=== PATIENT | female | born 1995 | race Caucasian/White ===

== ENCOUNTER 2017-02-03 16:12 | Emergency (ER) | payer BC ==
[2017-02-03 17:25] VITALS: BP 111/52
--- NOTE | 2017-02-03 18:36 | UC ---
Skin Complaint HPI - HPI Summary HPI Summary: pt presents with c/o sudden onset of pruritic rash that is diffuse. Pt states taht she was hiking over the weekend and then woke two days after hiking with diffuse pruritic circular rash. Pt takes daily xyzal, and denies tick bite. - History of Current Complaint Chief Complaint: UCGeneralIllness Time Seen by Provider: 02/03/17 17:42 Stated Complaint: SORE THROAT, RASH Hx Obtained From: Patient Hx Last Menstrual Period: 3 weeks ago ?: No Onset/Duration: Sudden Onset, Lasting Days - 2 Onset Severity: Mild Current Severity: Mild Pain Intensity: 0 Pain Scale Used: 0-10 Numeric Character: Pruritus, Redness Alleviating: Unknown Associated Signs & Symptoms: Positive: Rash - Allergy/Home Medications Allergies/Adverse Reactions: Allergies Allergy/AdvReac Type Severity Reaction Status Date / Time No Known Allergies Allergy Verified 02/03/17 17:26 Home Medications: Home Medications LevoCETirizine TAB (NF) [Xyzal TAB (NF)] 10 02/03/17 [History] Review of Systems Constitutional: Negative Skin: Rash Eyes: Negative ENT: Negative Respiratory: Negative Cardiovascular: Negative Gastrointestinal: Negative Genitourinary: Negative Motor: Negative Neurovascular: Negative Musculoskeletal: Negative Neurological: Negative Psychological: Negative All Other Systems Reviewed And Are Negative: Yes PMH/Surg Hx/FS Hx/Imm Hx Previously Healthy: Yes - Surgical History Surgical History: None Surgery Procedure, Year, and Place: Nasal surgery 12/2015 - Family History Known Family History: Positive: Respiratory Disease - Social History Occupation: Student Alcohol Use: Occasionally Substance Use Type: None Smoking Status (MU): Never Smoked Tobacco - Immunization History Most Recent Tetanus Shot: 2012 ? Vaccination Up to Date: Yes Physical Exam Triage Information Reviewed: Yes Appearance: Well-Appearing Vital Signs: Initial Vital Signs Temp 97.6 F 02/03/17 17:19 Pulse 84 02/03/17 17:19 Resp 20 02/03/17 17:19 BP 111/52 02/03/17 17:19 Pulse Ox 99 02/03/17 17:19 Vital Signs Reviewed: Yes Eye Exam: Normal ENT Exam: Other ENT: Positive: TM bulging - left TM Neck exam: Normal Respiratory Exam: Normal Cardiovascular Exam: Normal Musculoskeletal Exam: Normal Neurological Exam: Normal Psychological Exam: Normal Skin Exam: Other Skin: Positive: rashes - diffuse, erythematous circular rash Course/Dx - Differential Diagnoses - Skin Complaint Differential Diagnoses: Allergic Reaction, Contact Dermatitis, Tick Born Illness - Diagnoses Provider Diagnoses: contact dermatitis Discharge - Discharge Plan Condition: Stable Disposition: HOME Prescriptions: predniSONE TAB* [Deltasone TAB*] 20 mg PO DAILY #5 tab Patient Education Materials: Contact Dermatitis (ED) Referrals: Gladys Will MD [Primary Care Provider] - If Needed
== END 2017-02-03 18:25 | disposition home or self-care (01) ==
LOC: UCCORT 16:12
DX: L25.9 Unspecified contact dermatitis, unspecified cause (principal)
CPT/HCPCS: 99211; G0463

== ENCOUNTER 2017-04-01 18:02 | Emergency (ER) | payer BC ==
[2017-04-01 19:01] VITALS: BP 115/63
--- NOTE | 2017-04-01 19:47 | UC ---
Skin Complaint HPI - HPI Summary HPI Summary: 21 y/o female with c/o red, dry, burning feet x ~ several days. C/O peeling, cracking feet, burning type sensation. Patient has had similar symptoms while playing soccer, was treated with an ointment. Mother concerned about cellulitis. no fever, chills. Pt also c/o urinary frequency with one episodes of incontinence while sleeping. No burning, foul odor, not sexually active, no . no back pain. no prior symptoms. staying at [place] [facility] currently. - History of Current Complaint Chief Complaint: UCGeneralIllness Time Seen by Provider: 04/01/17 19:38 Stated Complaint: URINARY/LFT FOOT INFECTION Hx Obtained From: Patient, Family/Black Puller - mother Hx Last Menstrual Period: 3 wks ago Onset/Duration: Gradual Onset, Lasting Weeks Onset Severity: Mild Current Severity: Mild - Allergy/Home Medications Allergies/Adverse Reactions: Allergies Allergy/AdvReac Type Severity Reaction Status Date / Time No Known Allergies Allergy Verified 04/01/17 18:56 Review of Systems Skin: Rash Genitourinary: Frequency All Other Systems Reviewed And Are Negative: Yes PMH/Surg Hx/FS Hx/Imm Hx Previously Healthy: Yes - Surgical History Surgical History: None Surgery Procedure, Year, and Place: Sinus surgery 12/2015 - Family History Known Family History: Positive: Respiratory Disease - Social History Alcohol Use: None Substance Use Type: None Smoking Status (MU): Never Smoked Tobacco - Immunization History Most Recent Tetanus Shot: 2012 ? Vaccination Up to Date: Yes Physical Exam Triage Information Reviewed: Yes Appearance: Well-Appearing, No Pain Distress, Well-Nourished Vital Signs: Initial Vital Signs Temp 98.7 F 04/01/17 18:57 Pulse 65 04/01/17 18:57 Resp 16 04/01/17 18:57 BP 115/63 04/01/17 18:57 Pulse Ox 100 04/01/17 18:57 Eyes: Positive: Conjunctiva Clear Musculoskeletal: Positive: Strength Intact, ROM Intact, No Edema - b/l LEs sensation grossly intact Neurological: Positive: Alert Psychological: Positive: Normal Response To Family Skin: Positive: rashes, breakdown - skin breakdown over L small finger with raised plaque around area, + dry flaking skin with erythematous base, + blanching, no LAD, no lymphangitis spread., Other - raised plaque over R great toe, no skin breakdown, + erythematous base, no LAD, lymphangitic spread noted, non-tender to touch. PT pulses 2+ b/l. Course/Dx - Course Course Of Treatment: athletes foot, discussed foot care, treatment x 2 weeks. UA negative, sent for cultures, follow up with PCP with regards to further work up - Differential Diagnoses - Skin Complaint Differential Diagnoses: Cellulitis, Contact Dermatitis, Poison Alicia, Poison Success, Scabies, Urticaria - Diagnoses Provider Diagnoses: athletes foot b/l Discharge - Discharge Plan Condition: Good Disposition: HOME Prescriptions: Clotrimazole 1% CREAM* [Clotrimazole 1%*] 1 applic TOPICAL BID #1 tube Patient Education Materials: Athlete's Foot (ED) Referrals: Gladys Will MD [Primary Care Provider] - Additional Instructions: - Keep feet clean and dry - Use medicated powder to feet daily when in shoes long periods or with increased activity - Air dry feet well prior to putting on shoes - Use antifungal ointment to feet twice daily x 2 weeks for best results - Return with increased redness, swelling, warmth or pain
[2017-04-02 11:07] LABS: Urine Bilirubin Negative (Negative); Urine Glucose Negative (Negative); Urine Nitrite Negative (Negative)
== END 2017-04-01 19:58 | disposition home or self-care (01) ==
LOC: UCCORT 18:02
DX: B35.3 Tinea pedis (principal); R35.0 Frequency of micturition
CPT/HCPCS: 81003; 99212; G0463

== ENCOUNTER 2018-01-14 16:34 | Emergency (ER) | payer BC ==
[2018-01-14 17:32] VITALS: BP 103/59
--- NOTE | 2018-01-14 18:12 | UC ---
Throat Pain/Nasal Kris HPI - HPI Summary HPI Summary: Pt c/o nasal congestion, bilateral ear pain, left side sinus tenderness, and generalized malaise X 3 days. - History of Current Complaint Chief Complaint: UCRespiratory Stated Complaint: SINUS Time Seen by Provider: 01/14/18 17:32 Hx Obtained From: Patient Hx Last Menstrual Period: 12/17/17 ?: No Onset/Duration: Sudden Onset, Lasting Days, Still Present Severity: Mild Pain Intensity: 2 Pain Scale Used: 0-10 Numeric Cough: Productive Associated Signs & Symptoms: Positive: Sinus Discomfort - Epiglottits Risk Factors Epiglottis Risk Factors: Sudden Onset - Allergies/Home Medications Allergies/Adverse Reactions: Allergies Allergy/AdvReac Type Severity Reaction Status Date / Time seasonal Allergy Runny Nose Uncoded 01/14/18 17:33 Home Medications: Home Medications Cpm/PE/Dm/Acetaminophen/Guaifn [Tylenol Cold-Flu Day-Nt Caplet] 2 each PO ONCE PRN 01/14/18 [History Confirmed 01/14/18] Hoeopathic Allergy Med 1 dose PO SEE INSTRUCTIONS PRN 01/14/18 [History Confirmed 01/14/18] PMH/Surg Hx/FS Hx/Imm Hx Previously Healthy: Yes - Surgical History Surgical History: None Surgery Procedure, Year, and Place: Sinus surgery 12/2015 - Family History Known Family History: Positive: Respiratory Disease - Social History Occupation: Employed Full-time Lives: With Family Alcohol Use: Occasionally Substance Use Type: None Smoking Status (MU): Never Smoked Tobacco Have You Smoked in the Last Year: No - Immunization History Most Recent Tetanus Shot: 2012 ? Vaccination Up to Date: Yes Review of Systems Constitutional: Fatigue Skin: Negative Eyes: Negative ENT: Ear Ache, Sinus Congestion, Sinus Pain/Tenderness Respiratory: Cough Cardiovascular: Negative Gastrointestinal: Negative Genitourinary: Negative Motor: Negative Neurovascular: Negative Musculoskeletal: Negative Neurological: Negative Psychological: Negative Is Patient Immunocompromised?: No All Other Systems Reviewed And Are Negative: Yes Physical Exam Triage Information Reviewed: Yes Appearance: Ill-Appearing Vital Signs: Initial Vital Signs Temp 99 F 01/14/18 17:25 Pulse 56 01/14/18 17:25 Resp 18 01/14/18 17:25 BP 103/59 01/14/18 17:25 Pulse Ox 100 01/14/18 17:25 Vital Signs Reviewed: Yes Eye Exam: Normal ENT Exam: Other ENT: Positive: Nasal congestion, TM bulging, TM red, Sinus tenderness Neck exam: Normal Respiratory Exam: Normal Cardiovascular Exam: Normal Musculoskeletal Exam: Normal Neurological Exam: Normal Psychological Exam: Normal Skin Exam: Normal Throat Pain/Nasal Course/Dx - Differential Dx/Diagnosis Differential Diagnosis/HQI/PQRI: Otitis Media, Sinusitis, URI Provider Diagnoses: bilateral OM. sinusitis Discharge - Sign-Out/Discharge Documenting (check all that apply): Discharge/Admit/Transfer - Discharge Plan Condition: Stable Disposition: HOME Prescriptions: Amoxicillin/Clavulanate TAB* [Augmentin TAB 875*] 875 mg PO Q12H #20 tab Patient Education Materials: Sinusitis (ED), Ear Infection (ED) Referrals: Gladys Will MD [Primary Care Provider] - If Needed - Billing Disposition and Condition Condition: STABLE Disposition: HOME
== END 2018-01-14 17:56 | disposition home or self-care (01) ==
LOC: UCCORT 16:34
DX: H66.93 Otitis media, unspecified, bilateral (principal); J32.9 Chronic sinusitis, unspecified
CPT/HCPCS: 99212; G0463

== ENCOUNTER 2019-03-29 07:33 | Emergency (ER) | payer BC ==
[2019-03-29 07:44] VITALS: BP 120/70
--- NOTE | 2019-03-29 08:02 | ED ---
Abdominal Pain/Female - HPI Summary HPI Summary: 23 yr old with recent travel to [place]. Presents here with diarrhea for 6 days, and now low abdominal pain, nausea. Her symptoms have been worsening progressively all week. She has felt a little light headed. No blood in stool. She has had some chills. No prior abdominal surgeries. - History of Current Complaint Chief Complaint: UCAbdominalPain Stated Complaint: DIARRHEA,ABD CRAMPING Time Seen by Provider: 03/29/19 07:54 Hx Last Menstrual Period: ~03/09/19 Pain Intensity: 7 Allergies/Adverse Reactions: Allergies Allergy/AdvReac Type Severity Reaction Status Date / Time seasonal Allergy Runny Nose Uncoded 03/29/19 07:41 Home Medications: Home Medications Bismuth Subsalicylate [Pepto-Bismol Max Strength] 525 mg PO SEE INSTRUCTIONS PRN 03/29/19 [History Confirmed 03/29/19] Sertraline* [Zoloft*] 50 mg PO DAILY 03/29/19 [History Confirmed 03/29/19] PMH/Surg Hx/FS Hx/Imm Hx Respiratory History: Reports: Hx Asthma - Surgical History Surgery Procedure, Year, and Place: Sinus surgery 12/2015 Infectious Disease History: No Infectious Disease History: Reports: Traveled Outside the [place] in Last 30 Days - [place], [place] - Family History Known Family History: Positive: Respiratory Disease - Social History Lives: With Family Alcohol Use: Occasionally Substance Use Type: Reports: None Smoking Status (MU): Never Smoked Tobacco Have You Smoked in the Last Year: No Review of Systems Positive: Chills Positive: Abdominal Pain, Diarrhea, Nausea All Other Systems Reviewed And Are Negative: Yes Physical Exam Triage Information Reviewed: Yes Vital Signs On Initial Exam: Initial Vitals Temp Pulse Resp BP Pulse Ox 97.8 F 72 16 120/70 99 03/29/19 07:38 03/29/19 07:38 03/29/19 07:38 03/29/19 07:38 03/29/19 07:38 Vital Signs Reviewed: Yes Appearance: Positive: Well-Appearing, No Pain Distress Skin: Positive: Warm, Skin Color Reflects Adequate Perfusion Head/Face: Positive: Normal Head/Face Inspection Eyes: Positive: EOMI, CHINYERE ENT: Positive: Pharynx normal Neck: Positive: Nontender Respiratory/Lung Sounds: Positive: Clear to Auscultation, Breath Sounds Present Cardiovascular: Positive: RRR. Negative: Murmur Abdomen Description: Negative: Nontender - mild tender, Distended Musculoskeletal: Positive: Strength/ROM Intact Neurological: Positive: Sensory/Motor Intact, Alert, Oriented to Person Place, Time, CN Intact II-III, Normal Gait, Speech Normal Psychiatric: Positive: Normal - [place] Coma Scale Best Eye Response: 4 - Spontaneous Best Motor Response: 6 - Obeys Commands Best Verbal Response: 5 - Oriented Coma Scale Total: 15 Diagnostics - Vital Signs Vital Signs Temp Pulse Resp BP Pulse Ox 03/29/19 07:38 97.8 F 72 16 120/70 99 - Laboratory Lab Statement: Any lab studies that have been ordered have been reviewed, and results considered in the medical decision making process. Abdominal Pain Fem Course/Dx - Course Course Of Treatment: 23 yr old female with low abdominal pain, diarrhea. CITLALI Mercado NP at [facility]. She will be expecting the patient. - Diagnoses Provider Diagnoses: Bilateral lower abdominal pain, Diarrhea Discharge - Sign-Out/Discharge Documenting (check all that apply): Patient Departure All imaging exams completed and their final reports reviewed: No Studies - Discharge Plan Condition: Good Disposition: HOME-RECOMMEND TO ED Patient Education Materials: Acute Diarrhea (ED), Acute Abdominal Pain (ED) Referrals: Gladys Will MD [Primary Care Provider] - Additional Instructions: Go to the ER for further evaluation. - Billing Disposition and Condition Condition: GOOD Disposition: Home-Recommend to ED
== END 2019-03-29 08:00 | disposition home health service (06) ==
LOC: UCCORT 07:33
DX: R10.31 Right lower quadrant pain (principal); R10.32 Left lower quadrant pain; R19.7 Diarrhea, unspecified
CPT/HCPCS: 99212; G0463